=== PATIENT | female | born 1975 | race Caucasian/White ===

== ENCOUNTER → 2023-04-18 | Day surgery (SDC) | payer BC ==
[~2023-04-18] VITALS: Ht 167.6 cm; Wt 110.7 kg
[~2023-04-18] MED LIST: ATOR20TA65 MT; DILT240T12 MT; LIDOCAINE HCL 1% 10 MG/ML 10ML VIAL ONE; LISI-649 MT; MIDAZOLAM HCL 5 MG/5 ML VIAL ONE; NAPR-681 MT; ONDANSETRON HCL 4MG/2ML INJ ONE; PANT40TA51 MT; POTA-202 MT; PROPOFOL 200MG/20ML VIAL IV ONE; SIMETHICONE 40 MG/0.6 ML 15ML ONE; SULF500T8 PO
== END | disposition home or self-care (01) ==
LOC: OR 06:59
PROVIDERS: ATTEND Internal Medicine Gastroenterology
DX: K59.00 Constipation, unspecified (principal); K21.9 Gastro-esophageal reflux disease without esophagitis; R13.10 Dysphagia, unspecified; K44.9 Diaphragmatic hernia without obstruction or gangrene; K29.50 Unspecified chronic gastritis without bleeding; D12.0 Benign neoplasm of cecum; I10 Essential (primary) hypertension; E78.5 Hyperlipidemia, unspecified; Z79.899 Other long term (current) drug therapy; Z90.49 Acquired absence of other specified parts of digestive tract; Z98.890 Other specified postprocedural states; Z88.8 Allergy status to other drugs, medicaments and biological substances
CPT/HCPCS: 45380; 43239; 88305; J3490; J2250; J2405; J2704; 88312; 88313